=== PATIENT | female | born 1960 | race Caucasian/White ===

== ENCOUNTER → 2016-09-15 | Outpatient (CLI) | payer OTHER ==
[2016-09-15 17:11] LABS: ALBUMIN/GLOBULIN RATIO 1.33 (1.00-1.93); ALKALINE PHOSPHATASE 77 U/L (45-117); ALT/SGPT 31 U/L (12-78); AST/SGOT 23 U/L (15-37); BILIRUBIN,TOTAL 0.4 MG/DL (0.2-1.0); BLOOD UREA NITROGEN 10 MG/DL (7-18); CALCIUM LEVEL 8.7 MG/DL (8.5-10.1); CARBON DIOXIDE LEVEL 29 MEQ/L (21-32); CHLORIDE LEVEL 98 MEQ/L (98-107); CREATININE FOR GFR 0.92 MG/DL (0.55-1.02); FREE T4 1.23 NG/DL (0.76-1.46); GLOMERULAR FILTRATION RATE > 60.0 (>51); GLUCOSE, FASTING 99 MG/DL (70-105)
[2016-09-15 17:17] LABS: ANION GAP 9 MEQ/L (8-16); SODIUM LEVEL 136 MEQ/L (136-145)
[2016-09-15 17:32] LABS: BASO % 0.4 % (0.0-1.0); EOS # 0.2 K/mm3 (0.0-0.50); EOS % 2.3 % (0.0-3.0); LARGE UNSTAINED CELL # 0.2 K/mm3 (0.0-0.4); LARGE UNSTAINED CELL % 2.2 % (0.0-4.0); LYMPH # 2.3 K/mm3 (1.5-4.5); LYMPH % 26.2 % (24.0-44.0); MEAN CORPUSCULAR HEMOGLOBIN 31.3 pg (27.0-33.0); MEAN CORPUSCULAR HGB CONC 34.6 g/dl (32.0-36.5); MEAN CORPUSCULAR VOLUME 90.5 fl (80.0-96.0); MONO # 0.5 K/mm3 (0.0-0.8); MONO % 5.8 % (0.0-5.0); NEUTROPHILS # 5.5 K/mm3 (1.8-7.7); NEUTROPHILS % 63.1 % (36.0-66.0); PLATELET COUNT, AUTOMATED 245 k/mm3 (150-450); RED CELL DISTRIBUTION WIDTH 12.9 % (11.5-14.5); WHITE BLOOD COUNT 8.8 K/mm3 (4.0-10.0)
[2016-09-15 17:59] LABS: ERYTHROCYTE SEDIMENTATION RATE 6 mm/hr (0-30)
== END ==
LOC: M LAB 16:05
PROVIDERS: ATTEND Physician Assistant Medical
DX: R19.7 Diarrhea, unspecified (principal)

== ENCOUNTER → 2016-09-30 | Outpatient (CLI) | payer OTHER ==
[~2016-09-30] MED LIST: ATOR1TAB19 PO; CALC600T31 PO; CLON-412 PO; ENAL10TA10 PO; ENAL10TA2 PO; GABA600T PO; GASTROGRAFIN SOLUTION 30ML (Q9963) As Ordered ONE; HYDR7.5T66 PO; ISOVUE-370 76% 100ML VIAL (Q9967) As Ordered ONE; NATU400T PO; OMEP40CA2 PO; POTA10TA16 PO; TAMO20TA4 PO; TRAZ-136 PO; VENL150C43 PO; VITA-112 PO; VITA500T3 PO
--- NOTE | 2016-09-30 18:10 | REP ---
Clinical: Diarrhea and abnormal weight loss. Technique: Axial contrast enhanced images from the lung bases to the pubic symphysis using oral and 100 ml Isovue 370 intravenous contrast material with precontrast and delayed images of the abdomen as well as coronal and sagittal re-formations. Findings: Lung bases are clear. Visualized heart and pericardium normal. Fatty infiltration to the liver noted without focal hepatic lesion. Small 1.5 cm hepatic cyst identified in the gallbladder fossa. Spleen, pancreas, bilateral adrenal glands and kidneys are normal. The enteric system is without obstruction or acute inflammatory process. Normal terminal ileum and appendix are identified in the right lower quadrant. Pelvis demonstrates normal bladder and age-appropriate uterus/adnexa. No pelvic fluid or ascites. No free air. No adenopathy. No mass lesion. Abdominal aorta and vasculature normal. Surrounding musculoskeletal structures are intact. Impression: 1. Hepatosteatosis and 1.5 cm rim calcified hepatic cyst at the gallbladder fossa. 2. No further acute abdominopelvic pathology appreciated. Signed by Boone Drake MD 09/30/2016 06:02 P
== END ==
LOC: M RAD 14:57
PROVIDERS: ATTEND Physician Assistant Medical
DX: K76.0 Fatty (change of) liver, not elsewhere classified (principal); K76.89 Other specified diseases of liver; R19.7 Diarrhea, unspecified; R10.84 Generalized abdominal pain; R63.4 Abnormal weight loss
CPT/HCPCS: 74178; Q9963; Q9967

== ENCOUNTER → 2016-10-14 | Outpatient (CLI) | payer OTHER ==
[~2016-10-14] VITALS: Ht 174 cm; Wt 129.3 kg
[~2016-10-14] MED LIST changes: -GASTROGRAFIN SOLUTION 30ML (Q9963) As Ordered ONE; -ISOVUE-370 76% 100ML VIAL (Q9967) As Ordered ONE; +LIDOCAINE 2% INJ 100 MG/5 ML SDV (FOR ANES.) As Ordered ONE; +NS 1,000 ML IV ONE; +PROPOFOL 200 MG/20 ML VIAL As Ordered ONE
--- NOTE | 2016-10-14 12:27 | ROOR ---
Patient Name: Radha Artis Procedure Date: 10/14/2016 12:12 PM Date of : 1960 Age: 56 Room: [facility] Gender: Female Note Status: Finalized Procedure: Upper GI endoscopy Indications: Generalized abdominal pain, Heartburn Providers: Nolan VALENZUELA MD Referring MD: SHELIA OTERO Requesting Provider: Medicines: Monitored Anesthesia Care Complications: No immediate complications. Procedure: Pre-Anesthesia Assessment: - The heart rate, respiratory rate, oxygen saturations, blood pressure, adequacy of pulmonary ventilation, and response to care were monitored throughout the procedure. The Endoscope was introduced through the mouth, and advanced to the third part of duodenum. The upper GI endoscopy was accomplished without difficulty. The patient tolerated the procedure well. Findings: The esophagus was normal. The stomach was normal. The examined duodenum was normal. Bilious fluid was found in the entire examined stomach. Impression: - Normal esophagus. - Normal stomach. (bilious fluid) - Normal examined duodenum. (bilious fluid) - No specimens collected. Recommendation: - Stop Omeprazole, start Questran --script sent to your pharmacy. Nolan Valenzuela MD Nolan VALENZUELA MD 10/14/2016 12:27:28 PM This report has been signed electronically. Number of Addenda: 0 Note Initiated On: 10/14/2016 12:12 PM Estimated Blood Loss: Estimated blood loss: none.
[2016-10-14 12:45] VITALS: BP 86/57
--- NOTE | 2016-10-14 12:46 | ROOR ---
Patient Name: Radha Artis Procedure Date: 10/14/2016 12:13 PM Date of : 1960 Age: 56 Room: [facility] Gender: Female Note Status: Finalized Procedure: Colonoscopy Indications: Generalized abdominal pain, Chronic diarrhea Providers: Nolan VALENZUELA MD Referring MD: SHELIA OTERO Requesting Provider: Medicines: Monitored Anesthesia Care Complications: No immediate complications. Procedure: Pre-Anesthesia Assessment: - The heart rate, respiratory rate, oxygen saturations, blood pressure, adequacy of pulmonary ventilation, and response to care were monitored throughout the procedure. The Colonoscope was introduced through the anus and advanced to 6 cm into the ileum. The colonoscopy was performed without difficulty. The patient tolerated the procedure well. The quality of the bowel preparation was good. Findings: The perianal and digital rectal examinations were normal. (Exam: Complete, Prep: Good or Excellent.) A diminutive polyp was found in the splenic flexure. The polyp was sessile. The polyp was removed with a cold snare. Resection and retrieval were complete. A few small-mouthed diverticula were found in the sigmoid colon. The exam was otherwise normal throughout the examined colon. The terminal ileum appeared normal. Biopsies for histology were taken with a cold forceps for evaluation of microscopic colitis. Fluid aspiration for C diff eval was performed. Impression: - One diminutive polyp at the splenic flexure, removed with a cold snare. Resected and retrieved. - Mild diverticulosis in the sigmoid colon. - The examined portion of the ileum was normal. - Biopsies were taken with a cold forceps for evaluation of microscopic colitis. - Fluid aspiration for was performed for stool testing. Recommendation: - Stop Omeprazole (causes diarrhea is some patients) - Start Welchol (or questran)--script sent to pharmacy. - Start Dicyclomine--script sent to your pharmacy. - Follow up in my office as scheduled for review. Nolan Vaelnzuela MD Nolan VALENZUELA MD 10/14/2016 12:45:41 PM This report has been signed electronically. Number of Addenda: 0 Note Initiated On: 10/14/2016 12:13 PM Estimated Blood Loss: Estimated blood loss: none.
== END | disposition home or self-care (01) ==
LOC: M OPP 11:12
PROVIDERS: ATTEND Internal Medicine Gastroenterology
DX: R10.84 Generalized abdominal pain (principal); R19.7 Diarrhea, unspecified; D12.3 Benign neoplasm of transverse colon; K57.30 Diverticulosis of large intestine without perforation or abscess without bleeding; R12 Heartburn; I10 Essential (primary) hypertension; E78.5 Hyperlipidemia, unspecified; M79.1 Myalgia; R63.4 Abnormal weight loss; F32.9 Major depressive disorder, single episode, unspecified; G62.9 Polyneuropathy, unspecified; R06.83 Snoring; Z92.21 Personal history of antineoplastic chemotherapy; Z92.3 Personal history of irradiation; Z85.41 Personal history of malignant neoplasm of cervix uteri; Z91.048 Other nonmedicinal substance allergy status; Z79.899 Other long term (current) drug therapy; Z80.0 Family history of malignant neoplasm of digestive organs; Z80.42 Family history of malignant neoplasm of prostate; Z80.8 Family history of malignant neoplasm of other organs or systems

== ENCOUNTER → 2016-11-16 | Outpatient (REF) ==
[~2016-11-16] MED LIST changes: -LIDOCAINE 2% INJ 100 MG/5 ML SDV (FOR ANES.) As Ordered ONE; -NS 1,000 ML IV ONE; -PROPOFOL 200 MG/20 ML VIAL As Ordered ONE
--- NOTE | 2016-11-16 10:45 | REP ---
Lumbar spine three views AP and lateral projections: There is degenerative disc disease at every lumbar level, most advanced and 04/05. Vertebral body heights and alignment are normal. The facets are unremarkable. The pedicles and sacroiliac articulations are unremarkable. There are small ring-shaped structures in the pelvis bilaterally, ligation clips versus phleboliths. Impression: Multilevel degenerative disc disease. Signed by Albert Lafleur MD 11/16/2016 10:37 A
== END ==
LOC: M SMT 09:10
PROVIDERS: ATTEND Internal Medicine
DX: M51.37 Other intervertebral disc degeneration, lumbosacral region (principal)

== ENCOUNTER → 2017-04-10 | Outpatient (CLI) | payer OTHER | LOC: M RAD 09:22 | DX: R93.3 Abnormal findings on diagnostic imaging of other parts of digestive tract (principal) | CPT/HCPCS: 76705 ==

== ENCOUNTER → 2017-05-22 | Outpatient (CLI) | payer OTHER ==
[~2017-05-22] MED LIST changes: -ATOR1TAB19 PO; -CALC600T31 PO; -CLON-412 PO; -ENAL10TA10 PO; -ENAL10TA2 PO; -GABA600T PO; -HYDR7.5T66 PO; -NATU400T PO; -OMEP40CA2 PO; -POTA10TA16 PO; +PROHANCE 279.3MG/ML 15ML VIAL (A9576) As Ordered; -TAMO20TA4 PO; -TRAZ-136 PO; -VENL150C43 PO; -VITA-112 PO; -VITA500T3 PO
== END ==
LOC: M RAD 12:51
DX: K82.9 Disease of gallbladder, unspecified (principal)
CPT/HCPCS: A9576